=== PATIENT | female | born 1970 | race Caucasian/White ===

== ENCOUNTER 2018-05-10 08:56 | Emergency (ER) | payer SELFPAY ==
[~2018-05-10] VITALS: Ht 167.6 cm; Wt 72.7 kg
[2018-05-10] MEDS ORDERED: TRAMADOL 50 MG TAB PO (09:03)
[2018-05-10] MEDS ORDERED: CYMBALTA60 M1 PO (09:03)
[2018-05-10] MEDS ORDERED: DESYREL50 MG PO (09:04)
[2018-05-10 09:34] LABS: EOS # 0.3 (0.04-0.40); EOS % 4.8 % (1.0-5.0); HEMATOCRIT 37.9 % (37.0-47.0); HEMOGLOBIN 12.7 g/dL (12.5-16.0); LYMPH# 1.6 (1.50-4.00); MEAN CELL VOLUME 98 fl (78-100); MEAN CORPUSCULAR HEMOGLOBIN 33 pg (27-31); MEAN CORPUSCULAR HGB CONC 34 g/dL (33-37); MEAN PLATELET VOLUME 9.6 fl (7.4-10.4); MONO # 0.6 (0.20-0.80); NEU # 4.1 (1.40-6.50); PLATELET COUNT 338 K/mm3 (130-400); RED BLOOD COUNT 3.86 M/mm3 (4.10-5.30); RED CELL DISTRIBUTION WIDTH 11.7 % (11.5-14.5); WHITE BLOOD COUNT 6.7 K/mm3 (4.8-10.8)
[2018-05-10 09:47] LABS: ALBUMIN 3.4 g/dL (3.5-5.0); CALCIUM 8.7 mg/dL (8.4-10.2); POTASSIUM 4.2 mmol/L (3.6-5.0); TOTAL BILIRUBIN 0.4 mg/dL (0.2-1.3); TOTAL PROTEIN 6.1 g/dL (6.3-8.2)
[2018-05-10] MEDS ORDERED: ZOFRAN ODT4 MG PO (11:30)
[2018-05-10] MEDS ORDERED: NORCO 325 MG-51 TA1 PO (11:30)
[2018-05-10] MEDS ORDERED: VIBRAMYCIN HYC100 MG PO (11:30)
[2018-05-10 11:34] LABS: URINE APPEARANCE CLEAR; URINE BILIRUBIN NEGATIVE (NEGATIVE); URINE BLOOD NEGATIVE (NEGATIVE); URINE COLOR YELLOW; URINE GLUCOSE NEGATIVE (NEGATIVE); URINE KETONE NEGATIVE (NEGATIVE); URINE LEUKOCYTE ESTERASE NEGATIVE (NEGATIVE); URINE MUCUS PRESENT (NOT PRESENT); URINE NITRATE NEGATIVE (NEGATIVE); URINE PROTEIN(semi-quant) TRACE mg/dL (NEGATIVE); URINE UROBILINOGEN NORMAL (NORMAL)
[2018-05-10 11:46] VITALS: BP 105/69
== END 2018-05-10 11:43 | disposition home or self-care (01) ==
LOC: ED 08:56
PROVIDERS: Nurse Practitioner Primary Care
DX: R51 Headache (principal); R06.2 Wheezing; R53.81 Other malaise; R11.2 Nausea with vomiting, unspecified; R52 Pain, unspecified; Z20.818 Contact with and (suspected) exposure to other bacterial communicable diseases; F17.200 Nicotine dependence, unspecified, uncomplicated; Z79.899 Other long term (current) drug therapy; Z88.8 Allergy status to other drugs, medicaments and biological substances
CPT/HCPCS: J1200; J1885; J2405; J7120